=== PATIENT | male | born 1990 | race Caucasian/White ===

== ENCOUNTER 2023-08-27 14:41 | Emergency (ER) | payer OTHER ==
[~2023-08-27] VITALS: Ht 170.2 cm; Wt 93.2 kg
[2023-08-27 15:43] VITALS: BP 118/67; TEMP 98.3; O2SAT 96
[2023-08-27] MEDS: diazePAM 10 MG TAB PO ONE (16:01)
[2023-08-27] MEDS: PERCOCET 5MG/325MG TAB PO ONE (16:02)
[2023-08-27] MEDS ORDERED: IBUP-1022 PO (16:03)
[2023-08-27] MEDS ORDERED: CYCL-707 PO (16:03)
== END 2023-08-27 16:20 | disposition home or self-care (01) ==
LOC: M ED 14:41
DX: S29.011A Strain of muscle and tendon of front wall of thorax, initial encounter (principal); X50.0XXA Overexertion from strenuous movement or load, initial encounter; Z79.1 Long term (current) use of non-steroidal anti-inflammatories (NSAID); Z79.899 Other long term (current) drug therapy; Y92.39 Other specified sports and athletic area as the place of occurrence of the external cause; Y93.53 Activity, golf; Y99.9 Unspecified external cause status